=== PATIENT | female | born 1995 | race Caucasian/White ===

== ENCOUNTER 2017-05-08 14:03 | Emergency (ER) | payer BC ==
[~2017-05-08] VITALS: Ht 167.6 cm; Wt 58.6 kg
[2017-05-08 14:07] VITALS: Ht 167.6 cm; Wt 58.6 kg
[2017-05-08] MEDS ORDERED: FERR1TAB23 PO (14:30)
[2017-05-08] MEDS ORDERED: CETI10TA84 PO (14:30)
[2017-05-08] MEDS ORDERED: APIX1TAB3 PO (14:30)
[2017-05-08] MEDS ORDERED: ESCI1TAB18 PO (14:30)
[2017-05-08] MEDS ORDERED: DOXY100C76 PO (14:30)
--- NOTE | 2017-05-08 14:45 | EMERGENCY ROOM VISIT NOTE ---
ED Visit Note First contact with patient: 14:13 Resident Physician Supervision Note: I was present with Dr. Haji during the history and exam. I discussed the case with the resident and agree with the findings and plan as documented in the note. Documented By: Frederick Jackson
--- NOTE | 2017-05-08 15:14 | DIAGNOSTIC IMAGING REPORT ---
SINGLE VIEW CHEST CLINICAL HISTORY: Thoracic back pain. FINDINGS: An AP, portable, upright chest radiograph is obtained. No prior studies are available for comparison at the time of dictation. The cardiomediastinal silhouette is unremarkable. The lungs and pleural spaces are clear. No pneumothorax is seen. The bony thorax is grossly intact. IMPRESSION: No active disease in the chest. Electronically signed by: Wesly Lackey M.D. 05/08/2017 3:13 PM Dictated Date/Time: 05/08/2017 3:12 PM
--- NOTE | 2017-05-08 15:17 | EMERGENCY ROOM VISIT NOTE ---
History First contact with patient: 14:13 Chief Complaint: RESPIRATORY PROBLEMS Stated Complaint: PAIN FROM PULMONARY EMBOLISM History of Present Illness The patient is a 22 year old female who presents to the Emergency Room with complaints of right sided back pain. The patient has a history of multiple PEs back in March and was placed on Eliquis at that time. She initially states she had two PEs in the left lung and one on the right side. The pain she had experienced after the initial PEs had been chronic over the last few months but last week the pain began to worsen. She now complains of 7/10 sharp pain over the right side of her back, the location on her previous pain, She also is having pain with deep breaths. She denies any location of new pain. She also states she took Plan B last week, but the pain was worsening prior to that and has continued to worsen since. She tested positive for lupus anticoagulant in [place], but also had a reaction to Heparin in the hospital that may have caused a false positive, so she is currently being tested for hypercoagulability. 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 She denies any recent travel, is taking her Eliquis as prescribed, other than the Plan B is no longer on any hormonal medication. Patient denies any fever, hemoptysis, abdominal pain, or swelling or pain in her legs. Review of Systems See HPI for pertinent positives and negatives. A total of ten systems were reviewed and were otherwise negative. Social History Smoking Status: Never Smoker Current/Historical Medications Scheduled Apixaban (Eliquis), 5 MG PO BID Cetirizine (Zyrtec), 10 MG PO DAILY Doxycycline Monohydrate (Monodox), 100 MG PO BID Escitalopram Oxalate (Lexapro), 1 TAB PO DAILY Ferrous Sulfate (Iron), 325 MG PO DAILY Allergies Coded Allergies: Amoxicillin (Verified Allergy, Unknown, GI SYMPTOMS, 05/08/17) Clavulanic Acid (Verified Allergy, Unknown, GI SYMPTOMS, 05/08/17) Heparin (Verified Allergy, Unknown, decreased blood counts, 05/08/17) Adhesives (Verified Adverse Reaction, Unknown, rash, 05/08/17) Physical Exam Vital Signs Date Time Temp Pulse Resp B/P (MAP) Pulse Ox O2 Delivery O2 Flow Rate FiO2 05/08/17 14:28 95 Room Air 05/08/17 14:07 36.8 98 18 128/83 98 Room Air Physical Exam GENERAL: Awake, alert, well-appearing, in no distress HENT: Normocephalic, atraumatic. EYES: Normal conjunctiva. Sclera non-icteric. NECK: Supple. No nuchal rigidity. RESPIRATORY: Clear to auscultation. Decreased aeration over the right lower lung field CARDIAC: Regular rate, normal rhythm. Extremities warm and well perfused. Pulses equal. ABDOMEN: Soft, non-distended. No tenderness to palpation. RECTAL: Deferred. MUSCULOSKELETAL: Point tenderness over right upper back where patient states pain of previous PE was located. No tenderness with movement of the right arm or shoulder but tenderness exacerbated with deep breaths. LOWER EXTREMITIES: Calves are equal size bilaterally and non-tender. No edema. No discoloration. NEURO: Normal sensorium. No sensory or motor deficits noted. SKIN: No rash or jaundice noted. Medical Decision & Procedures Laboratory Results 05/08/17 14:55 Red Blood Count 5.23, Mean Corpuscular Volume 85.5, Mean Corpuscular Hemoglobin 25.8, Mean Corpuscular Hemoglobin Concent 30.2, Neutrophils (%) (Auto) 62.4, Lymphocytes (%) (Auto) 27.6, Monocytes (%) (Auto) 7.2, Eosinophils (%) (Auto) 1.7, Basophils (%) (Auto) 0.8, Neutrophils # (Auto) 4.07, Lymphocytes # (Auto) 1.80, Monocytes # (Auto) 0.47, Eosinophils # (Auto) 0.11, Basophils # (Auto) 0.05 05/08/17 14:55 Test 05/08/17 14:55 05/08/17 15:01 05/08/17 15:07 05/08/17 16:25 White Blood Count 6.52 K/uL (4.8-10.8) Red Blood Count 5.23 M/uL (4.2-5.4) Hemoglobin 13.5 g/dL (12.0-16.0) Hematocrit 44.7 % (37-47) Mean Corpuscular Volume 85.5 fL (80-100) Mean Corpuscular Hemoglobin 25.8 pg (25-34) Mean Corpuscular Hemoglobin Concent 30.2 g/dl (32-36) Platelet Count 178 K/uL (130-400) Neutrophils (%) (Auto) 62.4 % Lymphocytes (%) (Auto) 27.6 % Monocytes (%) (Auto) 7.2 % Eosinophils (%) (Auto) 1.7 % Basophils (%) (Auto) 0.8 % Neutrophils # (Auto) 4.07 K/uL (1.4-6.5) Lymphocytes # (Auto) 1.80 K/uL (1.2-3.4) Monocytes # (Auto) 0.47 K/uL (0.11-0.59) Eosinophils # (Auto) 0.11 K/uL (0-0.5) Basophils # (Auto) 0.05 K/uL (0-0.2) RDW Standard Deviation 63.2 fL (36.4-46.3) RDW Coefficient of Variation 20.9 % (11.5-14.5) Immature Granulocyte % (Auto) 0.3 % Immature Granulocyte # (Auto) 0.02 K/uL (0.00-0.02) Polychromasia 1+ Anisocytosis PRESENT Anion Gap 5.0 mmol/L (3-11) Est Creatinine Clear Calc Drug Dose 112.8 ml/min Estimated GFR () 136.5 Estimated GFR (Non- 117.7 BUN/Creatinine Ratio 18.4 (10-20) Calcium Level 9.2 mg/dl (8.5-10.1) Urine Test NEG (NEG) Bedside D-Dimer 53 ng/mlFEU (0-450) Medical Decision Patient is a 22 year old female with a history of bilateral PEs that presents with worsening chest pain Differential diagnosis includes worsening pain from previous pulmonary infarct, pulmonary embolus, DVT, pneumonia, pleurisy, bronchitis, and other diagnosis were considered Labs: CBC, BMP, D-Dimer, Urine Imaging: Chest X-Ray, Lower Extremity Doppler Impression Primary Impression: History of pulmonary embolism Additional Impression: Pleuritic chest pain Patient is a 22-year-old female that presents with right-sided chest pain - Chest x-ray shows no acute abnormalities - Lower extremity Doppler shows no acute abnormalities - CBC, BMP, PT/INR, d-dimer are all within normal limits - Current discomfort appears to be due to pleurisy secondary to most recent pulmonary embolism - Discussed results with patient and seems agreeable to discharge home Departure Information Dispostion Home / Self-Care Condition GOOD Referrals No Doctor, Assigned (PCP) Patient Instructions My [facility] Additional Instructions - Continue to take Eliquis 5 mg twice daily as instructed - Follow up with your primary care provider in the next week - If you present with any worsening symptoms including severe chest pain, shortness of breath, vomiting of blood, fever, chills, or any other concerning symptoms please return to the emergency department or be evaluated by a physician Problem Qualifiers
[2017-05-08 15:38] LABS: BASO % 0.8 %; BASO ABS # 0.05 K/uL (0-0.2); EOS % 1.7 %; HEMATOCRIT 44.7 % (37-47); IG% 0.3 %; LYMPH % 27.6 %; MEAN CELL VOLUME 85.5 fL (80-100); MEAN CORPUSCULAR HEMOGLOBIN 25.8 pg (25-34); MEAN CORPUSCULAR HGB CONC 30.2 g/dl (32-36); MONO % 7.2 %; NEUT % 62.4 %; PLATELET COUNT 178 K/uL (130-400); RED BLOOD COUNT 5.23 M/uL (4.2-5.4); WHITE BLOOD COUNT 6.52 K/uL (4.8-10.8)
[2017-05-08 15:55] LABS: BUN/CREATININE RATIO 18.4 (10-20); CALCIUM 9.2 mg/dl (8.5-10.1); CREATININE 0.73 mg/dl (0.60-1.20); POTASSIUM 3.8 mmol/L (3.5-5.1)
--- NOTE | 2017-05-08 16:12 | DIAGNOSTIC IMAGING REPORT ---
ULTRASOUND VENOUS DOPPLER LWR EXT BILA CLINICAL HISTORY: Previous PE, Chest Pain COMPARISON STUDY: No previous studies for comparison. FINDINGS: Real-time and color flow Doppler imaging were performed. Flow was seen within the femoral, popliteal and calf veins with no intraluminal thrombus demonstrated. The saphenous vein is patent. IMPRESSION: No evidence of lower extremity DVT. Electronically signed by: Luís Fuentes M.D. 05/08/2017 4:10 PM Dictated Date/Time: 05/08/2017 4:10 PM
[2017-05-08 16:15] LABS: ANISOCYTOSIS PRESENT; COMPLETE YES; POLYCHROMASIA 1+
[2017-05-08 16:55] VITALS: BP 118/61; PULSE 67; TEMP 36.8; O2SAT 100
[2017-05-08 17:04] LABS: INR 1.1 (0.9-1.1); PROTHROMBIN TIME (PATIENT) 11.4 SECONDS (9.0-12.0)
[2017-05-08 18:12] LABS: LYME DISEASE AB IGG NEG (NEG)
[2017-05-08 18:20] LABS: LYME DISEASE AB IGM EQUIVOCAL (NEG)
[2017-05-15 09:30] LABS: 18KDIGG BAND NONREACTIVE (NONREACTIVE); 23KDIGG BAND REACTIVE (NONREACTIVE); 23KDIGM BAND NONREACTIVE (NONREACTIVE); 28KDIGG BAND NONREACTIVE (NONREACTIVE); 30KDIGG BAND NONREACTIVE (NONREACTIVE); 39KDIGG BAND NONREACTIVE (NONREACTIVE); 39KDIGM BAND NONREACTIVE (NONREACTIVE); 41KDIGG BAND REACTIVE (NONREACTIVE); 41KDIGM BAND NONREACTIVE (NONREACTIVE); 45KDIGG BAND REACTIVE (NONREACTIVE); 58KDIGG BAND NONREACTIVE (NONREACTIVE); 66KDIGG BAND NONREACTIVE (NONREACTIVE); 93KDIGG BAND NONREACTIVE (NONREACTIVE)
== END 2017-05-08 16:55 | disposition home or self-care (01) ==
LOC: C.EDB 14:06
DX: R07.81 Pleurodynia (principal); Z86.711 Personal history of pulmonary embolism; Z79.01 Long term (current) use of anticoagulants